=== PATIENT | male | born 1960 | race Caucasian/White ===

== ENCOUNTER 2020-12-05 15:02 | Emergency (ER) | payer BC, SELFPAY ==
[2020-12-05 15:16] VITALS: BP 139/88; PULSE 63; RESP 20; TEMP 36.6; O2SAT 100
[2020-12-05 15:31] VITALS: BP 139/88; PULSE 63; RESP 20; TEMP 36.6; O2SAT 100
--- NOTE | 2020-12-05 16:00 | ED.GENADULT ---
HPI - General Adult General Chief complaint: Wound/Laceration Stated complaint: dog bite Source: patient Mode of arrival: ambulatory Limitations: no limitations History of Present Illness HPI narrative: Patient presents for evaluation of dog bite to the right side of the nose. The incident occurred just prior to arrival. He states he was bending down to pet his neighbors dog when the dog bit him. He is not sure if the dog is up-to-date on vaccinations but believes it is. Patient's last tetanus shot date unknown. Patient reports 6 out of 10 pain in the affected area, described as throbbing. Denies any fever, chills, purulent drainage. He is not diabetic. He does not smoke. Related Data Home Medications Medication Instructions Recorded Confirmed aspirin [Adult Low Dose Aspirin] 81 mg PO DAILY 12/05/20 12/05/20 Allergies Allergy/AdvReac Type Severity Reaction Status Date / Time COLLEEN Inhibitors Allergy Unknown Cough Verified 12/05/20 15:29 Penicillins Allergy Unknown Childhood Verified 12/05/20 15:29 allergy Review of Systems Review of Systems: CONSTITUTIONAL: Denies fever, chills, or sweats. EYES: Denies visual changes, redness, or discharge. ENT: Denies rhinorrhea, congestion, sore throat, or otalgia. Reports nasal pain at site of dog bite CARDIOVASCULAR: Denies chest pain, palpitations, or edema. RESPIRATORY: Denies cough or dyspnea. GASTROINTESTINAL: Denies abdominal pain, nausea, vomiting, or diarrhea. GENITOURINARY: Denies dysuria or hematuria. SKIN: Reports dog bite to the right side of the nose. Denies rash or itching. MUSCULOSKELETAL: Denies back pain, joint pain, or myalgia. NEUROLOGIC: Denies headache, numbness, dizziness, or weakness. PSYCHIATRIC: Denies anxiety or depression. [facility] Past Medical History Medical History (Updated 12/05/20 @ 17:50 by Angel Mora, SERINA, CALEB) Anxiety Dog bite of face Hyperlipidemia Hypertension Surgical History Surgical History No pertinent past surgical history Family History Family History Mother Father Cerebrovascular accident Patient's father is Sibling Brain aneurysm Social History Social History Smoking packs per day: 1 Smoking cigarettes per day: 20.0 Years smoked: 6 Smoking pack-years: 6.00 Smoking status: Former smoker Second hand tobacco smoke exposure: No Smoking end date: 03/12/08 Alcohol intake: never Exam Narrative: GENERAL: Well-appearing, well-nourished, and in no acute distress. HEAD: Normocephalic EYES: PERRLA and EOMI. ENT: Nares clear, no rhinorrhea or epistaxis. Mucous membranes moist. Oropharynx without tonsillar hypertrophy exudate or other lesions. Bilateral TMs pearly queen nonbulging NECK: Supple. No adenopathy or masses. No carotid bruits or JVD CHEST: Clear to auscultation. No respiratory distress. No wheezes rales or rhonchi HEART: Regular rate and rhythm. No murmur heard. Normal peripheral pulses. ABDOMEN: Soft, nontender, nondistended, normal active bowel sounds. EXTREMITIES: Normal range of motion. No edema. SKIN: Approximately 2 cm laceration in a flap formation to the right side of the external portion of the nose. Very jagged wound margins with 1 linear laceration through the flap. Skin is otherwise warm, dry, no rash. NEURO: No focal deficits. Alert and oriented x3. PSYCH: Normal mood and affect. Course Course Emergency Course: This is a very pleasant 59-year-old male that presented with a dog bite to the right side of the nose. There was a flap and I was concerned about this healing without laceration repair. Patient and I had a long discussion about potential for these wounds to get infected with closing. We did agree to a thorough irrigation of this wound prior to closure.
[2020-12-05] MEDS: TETANUS,DIPHTHERIA,AC PERTUSSIS ADULT (0.5 ML) BOOSTRIX IM (16:16)
--- NOTE | 2020-12-05 16:20 | PC.NURSE ---
1610-- PROVIDER ORDERED TORADOL IM BY MISTAKE ON THIS PT. PROVIDER NOTIFED HOSPITAL PHARMACY OF THE ERROR AND PHARMACY WILL CANCEL ORDER.
== END 2020-12-05 17:56 | disposition home or self-care (01) ==
PROVIDERS: Emergency Provider Nurse Practitioner; PCP Internal Medicine
DX: S01.21XA Laceration without foreign body of nose, initial encounter (principal); W54.0XXA Bitten by dog, initial encounter; Z23 Encounter for immunization; E78.5 Hyperlipidemia, unspecified; I10 Essential (primary) hypertension; Z87.891 Personal history of nicotine dependence
CPT/HCPCS: 12001; 90471; 90715; 99213; G0463

== ENCOUNTER 2022-04-25 02:03 | Day surgery (SDC) | payer BC, SELFPAY ==
[2022-04-10 15:01] VITALS: BMI 25.8
[2022-04-25 06:28] VITALS: BP 109/75; PULSE 69; RESP 18; TEMP 36.4; O2SAT 100
[2022-04-25] MEDS: LACTATED RINGERS 1,000 ML 150 ML IV CONT (06:37)
--- NOTE | 2022-04-25 06:42 | WPDANESEPPF ---
Anes - Initial Pre Proc Eval Procedure: Operation Date: 04/25/22 07:30 Proposed Procedures p Screening Colonoscopy - Sherwin Santos MD Date/Time: 04/25/22 06:42 Surgeon: Sherwin Santos MD Pre Op Diagnosis: neoplasm screening Patient Data Age: 61 Gender: M Height: 1.83 m Weight: 83.9 kg Last Vital Signs Temp 36.4 C 04/25/22 06:28 Pulse 69 04/25/22 06:28 Resp 18 04/25/22 06:28 BP 109/75 04/25/22 06:28 Pulse Ox 100 04/25/22 06:28 O2 Del Method Room Air 04/25/22 06:28 Allergies Allergy/AdvReac Type Severity Reaction Status Date / Time COLLEEN Inhibitors Allergy Unknown Cough Verified 04/25/22 06:27 Penicillins Allergy Unknown Childhood Verified 04/25/22 06:27 allergy Home Medications Medication Instructions Recorded Confirmed Type escitalopram oxalate 20 mg tablet 20 mg PO DAILY #90 tabs 05/25/21 04/10/22 Rx atorvastatin 10 mg tablet 10 mg PO DAILY #90 tabs 02/21/22 04/10/22 Rx losartan 100 1 tablet PO DAILY #90 tabs 04/12/22 Rx mg-hydrochlorothiazide 12.5 mg tablet zonisamide 100 mg capsule See Rx Instructions .Route 04/13/22 Rx .COMPLEX #90 caps Patient hx anesthesia problems: none Family hx anesthesia problems: none Results Review: All pre-operative results and documents have been reviewed as part of the pre-operative evaluation. [facility] Past Medical History Medical History Anxiety Dog bite of face Hyperlipidemia Hypertension Surgical History Surgical History (Updated 04/25/22 @ 06:43 by Marvin Roe MD) H/O colonoscopy Family History Family History Mother Father Cerebrovascular accident Patient's father is Sibling Brain aneurysm Social History Social History Smoking packs per day: 1 Smoking cigarettes per day: 20.0 Years smoked: 6 Smoking pack-years: 6.00 Smoking status: Never smoker Second hand tobacco smoke exposure: No Smoking end date: 03/12/08 Alcohol intake: current Drinks per week: 1 Substance use: never Substance use type: does not use Lack of Transportation: No Lack of Food: Never True Current Housing: I Have Housing Concerned About Future Housing: No Difficulty Paying Gas/Electric Bills: No Difficulty Paying for Meds: No Currently Unemployed: No Education: Trade/Vocational Certificate Difficulty w/ Childcare or Family Care: No Living arrangements: with family Spiritual care concerns: No Anes - Eval Final PreProcedure Day of Procedure 04/25/22 06:42 Patient weight: normal Heart: regular rate and rhythm Lungs: clear to auscultation Airway: Mallampati scale class II Neurological: alert and oriented Last oral intake: >/= 8 hours ASA classification: II Emergent: no Anesthetic plan: proceed Anesthesia type and monitoring: general GIVS and standard monitoring Results Review: All pre-operative results and documents have been reviewed as part of the pre-operative evaluation. Informed Consent: The patient's anesthetic plan and its attendant risks and benefits were discussed with the patient/family/POA. Questions were solicited and answers provided to the satisfaction of the patient/family/POA.
--- NOTE | 2022-04-25 07:51 | PM.HPGS ---
History of Present Illness History of Present Illness Consent: Risks, benefits, and alternatives have been discussed and questions answered. Patient agrees to proceed with procedure. Chief complaint: neoplasm screening Narrative: Alejandro Valdez is a 61 year old male Presents for screening colonoscopy. Patient's current weight appetite and bowel movements are normal. Patient denies abdominal pain. He has had no bleeding. Family history noncontributory. Previous colonoscopy 10 or 11 years ago was unremarkable. Review of Systems Review of Systems: Review of systems noncontributory. [facility] Past Medical History Medical History (Updated 04/25/22 @ 07:53 by Sherwin Santos MD) Anxiety Dog bite of face Hyperlipidemia Hypertension Surgical History Surgical History (Updated 04/25/22 @ 06:43 by Marvin Roe MD) H/O colonoscopy Family History Family History Mother Father Cerebrovascular accident Patient's father is Sibling Brain aneurysm Social History Social History Smoking packs per day: 1 Smoking cigarettes per day: 20.0 Years smoked: 6 Smoking pack-years: 6.00 Smoking status: Never smoker Second hand tobacco smoke exposure: No Smoking end date: 03/12/08 Alcohol intake: current Drinks per week: 1 Substance use: never Substance use type: does not use Lack of Transportation: No Lack of Food: Never True Current Housing: I Have Housing Concerned About Future Housing: No Difficulty Paying Gas/Electric Bills: No Difficulty Paying for Meds: No Currently Unemployed: No Education: Trade/Vocational Certificate Difficulty w/ Childcare or Family Care: No Living arrangements: with family Spiritual care concerns: No Meds Home Medications and Allergies Home Medications Medication Instructions Recorded Confirmed Type escitalopram oxalate 20 mg tablet 20 mg PO DAILY #90 tabs 05/25/21 04/10/22 Rx atorvastatin 10 mg tablet 10 mg PO DAILY #90 tabs 02/21/22 04/10/22 Rx losartan 100 1 tablet PO DAILY #90 tabs 04/12/22 04/25/22 Rx mg-hydrochlorothiazide 12.5 mg tablet zonisamide 100 mg capsule See Rx Instructions .Route 04/13/22 04/25/22 Rx .COMPLEX #90 caps Allergies Allergy/AdvReac Type Severity Reaction Status Date / Time COLLEEN Inhibitors Allergy Unknown Cough Verified 04/25/22 06:27 Penicillins Allergy Unknown Childhood Verified 04/25/22 06:27 allergy Vital Signs Vital Signs - 24 hr 04/25/22 06:28 Temperature 97.6 F Pulse Rate 69 Respiratory Rate 18 Blood Pressure 109/75 Pulse Oximetry 100 Oxygen Delivery Room Air Exam Narrative: Physical exam reveals patient to be alert. Vital signs stable. HEENT exam is unremarkable. Patient is anicteric. Lungs are clear to auscultation and percussion. Heart is without murmur or extra sounds. Abdomen bowel sounds are present soft nontender with no organomegaly. Digital external rectal exam is normal. Assessment and Plan Assessment and plan (1) Encounter for screening colonoscopy: Code(s): Z12.11 - Encounter for screening for malignant neoplasm of colon Status: Acute Assessment and Plan: Patient presents for screening colonoscopy. He appears to be at average risk for colon polyps
[2022-04-25 07:54] VITALS: BP 89/60; PULSE 64; RESP 27; O2SAT 97
[2022-04-25 08:04] VITALS: BP 88/56; PULSE 61; RESP 20; O2SAT 99
[2022-04-25 08:09] VITALS: BP 102/61; PULSE 56; RESP 16; O2SAT 100
== END 2022-04-25 08:20 | disposition home or self-care (01) ==
PROVIDERS: PCP Physician Assistant; Visit Provider Internal Medicine Gastroenterology
PROC: 0DJD8ZZ Inspection of Lower Intestinal Tract, Via Natural or Artificial Opening Endoscopic (ICD-10-PCS; CPT 45378; principal; 2022-04-25 07:30)
DX: Z12.11 Encounter for screening for malignant neoplasm of colon (principal); K64.8 Other hemorrhoids; K57.30 Diverticulosis of large intestine without perforation or abscess without bleeding; I10 Essential (primary) hypertension; E78.5 Hyperlipidemia, unspecified; F41.9 Anxiety disorder, unspecified
CPT/HCPCS: 45378; J2704; J7120